=== PATIENT | female | born 1970 | race Caucasian/White ===

== ENCOUNTER 2018-04-10 15:01 | Inpatient (IN) | payer BC, OTHER ==
[~2018-04-10] VITALS: Ht 170.2 cm; Wt 81.6 kg
--- NOTE | ~2018-04-10 | EKG ---
[address] [place] [address] ELECTROCARDIOGRAM REPORT Name: SELENA EASTON Room #: 170-7 ADM IN M.R.#: [id number] Admission: 04/10/18 Attend Phys: Mateus Baumann MD Discharge: Date of : 68 Report #: [id number] THIS REPORT FOR: //name// [facility] ED Test Date: 2018-04-10 Test Time: 15:48:53 Pat Name: SELENA EASTON Department: Room: Gender: F [employer]: james : [id number] Requested By: Mario Potter Order Number: [id number] MD: Jian Greene Measurements Intervals [place] Rate: 71 P: 22 [place]: 160 QRS: 15 QRSD: 97 T: 11 QT: 430 QTc: 468 Interpretive Statements Sinus rhythm Nonspecific ST segment abnormality Left ventricular hypertrophy Compared to ECG 11/11/2011 08:25:05 Left ventricular hypertrophy now present Electronically Signed On 04-10-2018 16:35:35 CDT by Jian Greene [email or web address] <ELECTRONICALLY SIGNED> By: Jian Greene MD, [facility] 04/10/18 1635 1548 1548 Jian Greene MD, [facility] /EPI
[~2018-04-10 15:01] MED LIST: AFLURIA 2045 MCG/0.4; APAP650 PO; ATENOLOL 50 MG50 M1 PO; AVONEX PEN30 MCG/0.1 IM; EXCEDRIN CAPLE1 EACH PO; FLEXERIL PO; IMITREX 25 MG T25 M1 PO; LEXAPRO 10 MG T10 MG PO; NAPROSYN500 MG PO; NORCO 5-325 TA1 EACH PO; PAXIL20 MG PO; PHENERGAN 25 MG25 M1 PO; PNEUMOVAX25 MCG/0.5; TOPAMAX50 MG PO
[2018-04-10 15:02] VITALS: BP 104/34
[2018-04-10 15:39] LABS: HEMATOCRIT 37.2 % (37.0-47.0); HEMOGLOBIN 12.7 gm/dL (12.0-15.0); MCH 27.7 pg (26.0-34.0); MCHC 34.1 g/dL (28.0-37.0); MCV 81.4 fL (80.0-100.0); RBC 4.57 mil/uL (4.20-5.00); RDW 13.5 % (10.5-14.5); WBC 7.4 thou/uL (4.0-11.0)
[2018-04-10 15:43] LABS: ANION GAP 8 mmol/L (7-16); BUN 16 mg/dL (7-18); CALCIUM 8.9 mg/dL (8.5-10.1); CHLORIDE 105 mmol/L (98-107); CO2 24 mmol/L (21-32); CREATININE 1.1 mg/dL (0.6-1.0); GLUCOSE 134 mg/dL (74-106); SODIUM 137 mmol/L (136-145)
[2018-04-10 15:52] LABS: TROPONIN-I < 0.04 ng/mL (<0.06)
[2018-04-10 16:27] VITALS: BP 104/34
[2018-04-10 16:27] LABS: URINE BLOOD 3+ (Negative); URINE CLARITY CLOUDY; URINE COLOR BROWN; URINE GLUCOSE-RANDOM* NEGATIVE (Negative); URINE KETONES TRACE (Negative); URINE NITRITE-REFLEX NEGATIVE (Negative); URINE PROTEIN (DIPSTICK) 2+ (Negative); URINE SPECIFIC GRAVITY 1.025 (1.005-1.035); URINE UROBILINOGEN 0.2 E.U./dl (0.2-1.0)
[2018-04-10 16:30] LABS: ICTOTEST (BILI CONFIRMATORY) Negative (Negative); URINE BILIRUBIN NEGATIVE (Negative); URINE LEUKOCYTES-REFLEX 1+ (Negative)
[2018-04-10 16:36] LABS: BACTERIA-REFLEX 1-9 Few /HPF (None Seen); CASTS None Seen /LPF (None Seen); CRYSTALS None Seen /LPF (None Seen); MUCUS >6 Heavy strn/LPF (None Seen); SQUAMOUS 4-10 Moderate /LPF (0-3); URINE RBC >20 Many /HPF (0-2)
[2018-04-10 16:37] LABS: WBC CLUMPS Few (None Seen)
[2018-04-10] MEDS ORDERED: LOPRESSOR100 M1 PO (16:42)
[2018-04-10] MEDS ORDERED: GILENYA0.5 MG PO (16:42)
[2018-04-10] MEDS ORDERED: EXFORGE 10-3201 EACH PO (16:42)
[2018-04-10] MEDS ORDERED: ANTIVERT25 MG PO (16:43)
[2018-04-10] MEDS ORDERED: PROZAC10 MG PO (16:43)
[2018-04-10] MEDS ORDERED: SYSTANE 0.3-0.1 EACH OPHTHALMIC (16:44)
[2018-04-10 16:45] VITALS: BP 97/43
[2018-04-10 17:44] VITALS: BP 112/54
[2018-04-10 19:37] VITALS: BP 114/45
[2018-04-10 23:23] VITALS: BP 138/62
[2018-04-11 03:34] LABS: HEMOGLOBIN 11.9 gm/dL (12.0-15.0); MCH 27.5 pg (26.0-34.0); MCHC 33.9 g/dL (28.0-37.0); MCV 81.3 fL (80.0-100.0); PLATELET COUNT 189 thou/uL (150-400); RBC 4.31 mil/uL (4.20-5.00); RDW 13.4 % (10.5-14.5); WBC 3.7 thou/uL (4.0-11.0)
[2018-04-11 03:48] LABS: CALCIUM 8.9 mg/dL (8.5-10.1); CREATININE 0.8 mg/dL (0.6-1.0); POTASSIUM 3.2 mmol/L (3.5-5.1)
[2018-04-11 04:29] VITALS: BP 128/70
[2018-04-11 05:32] LABS: ABSOLUTE NEUTROPHILS 2.8 thou/uL (1.4-8.2)
[2018-04-11 07:56] VITALS: BP 125/79
[2018-04-11 16:56] VITALS: BP 135/70
[2018-04-11 16:57] VITALS: BP 136/70
[2018-04-11 16:58] VITALS: BP 126/73
[2018-04-11 19:30] VITALS: BP 127/71
[2018-04-12 03:56] VITALS: BP 146/70
[2018-04-12 04:57] LABS: HEMATOCRIT 37.7 % (37.0-47.0); HEMOGLOBIN 12.8 gm/dL (12.0-15.0); MCH 27.6 pg (26.0-34.0); MCHC 33.9 g/dL (28.0-37.0); MCV 81.3 fL (80.0-100.0); RBC 4.64 mil/uL (4.20-5.00); RDW 13.5 % (10.5-14.5); WBC 4.5 thou/uL (4.0-11.0)
[2018-04-12 05:10] LABS: CALCIUM 9.1 mg/dL (8.5-10.1); CREATININE 0.8 mg/dL (0.6-1.0); POTASSIUM 3.6 mmol/L (3.5-5.1)
[2018-04-12 08:15] VITALS: BP 134/52
[2018-04-12] MEDS ORDERED: AUGMENTIN 875-1 EACH PO (09:54)
[2018-04-12 14:07] VITALS: BP 134/52
== END 2018-04-12 14:24 | disposition home or self-care (01) | DRG 315 ==
LOC: ER 15:01 → EROBS 16:07 → 4E 16:07
PROVIDERS: Emergency Medicine; Hospitalist; Nurse Practitioner
DX: I95.9 Hypotension, unspecified (principal); N17.9 Acute kidney failure, unspecified; N39.0 Urinary tract infection, site not specified; G43.909 Migraine, unspecified, not intractable, without status migrainosus; I10 Essential (primary) hypertension; F32.9 Major depressive disorder, single episode, unspecified; E86.0 Dehydration; K75.81 Nonalcoholic steatohepatitis (NASH); G35 Multiple sclerosis; Z79.899 Other long term (current) drug therapy; Z88.8 Allergy status to other drugs, medicaments and biological substances; Z91.041 Radiographic dye allergy status; Z87.442 Personal history of urinary calculi; Z90.49 Acquired absence of other specified parts of digestive tract; Z90.711 Acquired absence of uterus with remaining cervical stump
CPT/HCPCS: 10183